=== PATIENT | male | born 1965 | race Native Hawaiian/Other Pacific Islander ===

== ENCOUNTER 2017-03-17 09:26 | Emergency (ER) | payer BC ==
[~2017-03-17] VITALS: Ht 175.3 cm; Wt 59.0 kg
[2017-03-17 09:30] VITALS: TEMP 97.7
[2017-03-17] MEDS ORDERED: LIPITOR40 MG PO (09:45)
[2017-03-17] MEDS ORDERED: FLONASE AL50 MCG/ACT (09:45)
[2017-03-17] MEDS ORDERED: CLOP75TA2 PO (09:46)
[2017-03-17] MEDS ORDERED: PEPCID20 MG OR (09:47)
[2017-03-17] MEDS ORDERED: SM ASPIRIN ADUL81 MG OR (09:47)
[2017-03-17] MEDS ORDERED: AMOX600S (09:48)
[2017-03-17 10:25] LABS: PLATELET COUNT 172 K/uL (142-355)
[2017-03-17 10:30] LABS: POTASSIUM 3.7 mmol/L (3.6-5.2); SODIUM 136 mmol/L (136-145)
[2017-03-17 11:15] VITALS: BP 108/72
== END 2017-03-17 11:45 | disposition home or self-care (01) ==
LOC: ED 09:26
DX: R42 Dizziness and giddiness (principal)
CPT/HCPCS: 36415; 80053; 81000; 85027; 99283

== ENCOUNTER 2017-05-15 08:10 | Outpatient (CLI) | payer BC ==
[~2017-05-15 08:10] MED LIST: AMOX600S; CLOP75TA2 PO; FLONASE AL50 MCG/ACT; LIPITOR40 MG PO; PEPCID20 MG OR; SM ASPIRIN ADUL81 MG OR
[2017-05-15 09:07] LABS: POTASSIUM 4.1 mmol/L (3.6-5.2); SODIUM 139 mmol/L (136-145)
== END 2017-05-15 19:55 | disposition home or self-care (01) ==
LOC: LABW 08:10
PROVIDERS: Internal Medicine
DX: E83.51 Hypocalcemia (principal)
CPT/HCPCS: 36415; 80053

== ENCOUNTER 2017-06-30 08:08 | Outpatient (CLI) | payer BC | END 2017-06-30 09:10 | disposition home or self-care (01) | LOC: LABW 08:08 | PROVIDERS: Nurse Practitioner Adult Health | DX: I25.10 Atherosclerotic heart disease of native coronary artery without angina pectoris (principal); E78.2 Mixed hyperlipidemia; Z79.899 Other long term (current) drug therapy; Z51.81 Encounter for therapeutic drug level monitoring | CPT/HCPCS: 36415; 80061; 80076 ==

== ENCOUNTER 2017-09-02 07:35 | Outpatient (CLI) | payer BC ==
[2017-09-02 08:40] LABS: POTASSIUM 4.3 mmol/L (3.6-5.2); SODIUM 137 mmol/L (136-145)
== END 2017-09-02 19:01 | disposition home or self-care (01) ==
LOC: LABW 07:35
PROVIDERS: Internal Medicine
DX: R00.2 Palpitations (principal)
CPT/HCPCS: 36415; 80053; 83735; 84443

== ENCOUNTER 2017-11-09 19:07 | Emergency (ER) | payer BC ==
[~2017-11-09] VITALS: Ht 175.3 cm; Wt 58.5 kg
[2017-11-09 19:17] VITALS: TEMP 98.4
[2017-11-09 22:03] VITALS: BP 124/78
== END 2017-11-09 22:04 | disposition home or self-care (01) ==
LOC: ED 19:07
DX: S16.1XXA Strain of muscle, fascia and tendon at neck level, initial encounter (principal); S29.012A Strain of muscle and tendon of back wall of thorax, initial encounter; S39.012A Strain of muscle, fascia and tendon of lower back, initial encounter; S10.93XA Contusion of unspecified part of neck, initial encounter; S20.222A Contusion of left back wall of thorax, initial encounter; S20.221A Contusion of right back wall of thorax, initial encounter; S30.0XXA Contusion of lower back and pelvis, initial encounter; V49.3XXA Car occupant (driver) (passenger) injured in unspecified nontraffic accident, initial encounter
CPT/HCPCS: 96372; 99283; J1885

== ENCOUNTER 2018-01-19 09:19 | Outpatient (CLI) | payer BC ==
[2018-01-19 10:15] LABS: PLATELET COUNT 216 K/uL (142-355)
[2018-01-19 10:23] LABS: POTASSIUM 4.3 mmol/L (3.6-5.2)
== END 2018-01-19 21:48 | disposition home or self-care (01) ==
LOC: LABW 09:19
PROVIDERS: Specialist
DX: I25.10 Atherosclerotic heart disease of native coronary artery without angina pectoris (principal); E78.2 Mixed hyperlipidemia; Z79.899 Other long term (current) drug therapy; Z51.81 Encounter for therapeutic drug level monitoring; Z01.810 Encounter for preprocedural cardiovascular examination
CPT/HCPCS: 36415; 80053; 80061; 82248; 85027

== ENCOUNTER 2018-03-27 07:35 | Outpatient (CLI) | payer BC ==
[2018-03-27 07:50] LABS: PLATELET COUNT 222 K/uL (142-355)
== END 2018-03-27 23:09 | disposition home or self-care (01) ==
LOC: LABW 07:35
PROVIDERS: Specialist
DX: R20.8 Other disturbances of skin sensation (principal); G45.8 Other transient cerebral ischemic attacks and related syndromes
CPT/HCPCS: 36415; 80053; 82607; 84443; 85027; 85651; 86039

== ENCOUNTER 2018-04-28 08:49 | Outpatient (CLI) | payer BC | END 2018-04-28 23:45 | disposition home or self-care (01) | LOC: MRI 08:49 | DX: H81.49 Vertigo of central origin, unspecified ear (principal); G45.9 Transient cerebral ischemic attack, unspecified; R20.9 Unspecified disturbances of skin sensation ==

== ENCOUNTER 2018-05-25 09:32 | Outpatient (CLI) | payer BC | END 2018-05-25 21:12 | disposition home or self-care (01) | LOC: RAD 09:32 | DX: M25.522 Pain in left elbow (principal); M25.562 Pain in left knee; M54.42 Lumbago with sciatica, left side; M25.521 Pain in right elbow; M25.561 Pain in right knee ==

== ENCOUNTER 2018-07-20 08:26 | Outpatient (CLI) | payer BC | END 2018-07-20 19:26 | disposition home or self-care (01) | LOC: LABW 08:26 | PROVIDERS: Nurse Practitioner Adult Health | DX: I25.10 Atherosclerotic heart disease of native coronary artery without angina pectoris (principal); E78.2 Mixed hyperlipidemia; Z79.899 Other long term (current) drug therapy | CPT/HCPCS: 36415; 80061; 80076 ==

== ENCOUNTER 2018-11-20 18:39 | Emergency (ER) | payer OTHER ==
[~2018-11-20] VITALS: Ht 175.3 cm; Wt 58.1 kg
[2018-11-20 18:45] VITALS: TEMP 98.9
[2018-11-20 21:14] VITALS: BP 143/75
== END 2018-11-20 21:16 | disposition home or self-care (01) ==
LOC: ED 18:39
DX: S80.12XA Contusion of left lower leg, initial encounter (principal); W22.8XXA Striking against or struck by other objects, initial encounter
CPT/HCPCS: 99281

== ENCOUNTER 2019-01-12 11:43 | Outpatient (CLI) | payer OTHER ==
[2019-01-12] MEDS ORDERED: MECLIZINE25 MG PO (12:54)
[2019-01-12] MEDS ORDERED: GRALISE300 MG PO (12:54)
[2019-01-12] MEDS ORDERED: FLUOXETINE20 MG PO (12:55)
[2019-01-12] MEDS ORDERED: XANAX XR0.5 MG PO (12:55)
[2019-01-12] MEDS ORDERED: PROTONIX20 MG PO (12:56)
[2019-01-12] MEDS ORDERED: MELATONIN3 M1 PO (12:56)
== END 2019-01-12 11:53 | disposition short-term general hospital (02) ==
LOC: AMB 11:43
DX: R07.81 Pleurodynia (principal); R42 Dizziness and giddiness; R11.0 Nausea; R55 Syncope and collapse; R06.02 Shortness of breath
CPT/HCPCS: A0425; A0427

== ENCOUNTER 2019-01-12 11:56 | Emergency (ER) | payer OTHER ==
[~2019-01-12] VITALS: Ht 175.3 cm; Wt 59.0 kg
[2019-01-12 11:56] VITALS: TEMP 98.1
[2019-01-12] MEDS ORDERED: MECLIZINE25 MG PO (12:54)
[2019-01-12] MEDS ORDERED: GRALISE300 MG PO (12:54)
[2019-01-12] MEDS ORDERED: XANAX XR0.5 MG PO (12:55)
[2019-01-12] MEDS ORDERED: FLUOXETINE20 MG PO (12:55)
[2019-01-12] MEDS ORDERED: MELATONIN3 M1 PO (12:56)
[2019-01-12] MEDS ORDERED: PROTONIX20 MG PO (12:56)
[2019-01-12 13:07] LABS: PLATELET COUNT 212 K/uL (142-355)
[2019-01-12 13:08] LABS: POTASSIUM 3.9 mmol/L (3.6-5.2); SODIUM 138 mmol/L (136-145)
[2019-01-12 15:38] VITALS: BP 138/69
== END 2019-01-12 15:38 | disposition home or self-care (01) ==
LOC: ED 11:56
PROVIDERS: Family Medicine
DX: R55 Syncope and collapse (principal); S20.211A Contusion of right front wall of thorax, initial encounter; R00.1 Bradycardia, unspecified
CPT/HCPCS: 80053; 81000; 84484; 85027; 93005; 99283

== ENCOUNTER 2019-03-06 17:32 | Emergency (ER) | payer OTHER ==
[~2019-03-06] VITALS: Ht 175.3 cm; Wt 59.0 kg
[~2019-03-06 17:32] MED LIST changes: +FLUOXETINE20 MG PO; +GRALISE300 MG PO; +MECLIZINE25 MG PO; +MELATONIN3 M1 PO; +PROTONIX20 MG PO; +XANAX XR0.5 MG PO
[2019-03-06 18:34] LABS: PLATELET COUNT 172 K/uL (142-355)
[2019-03-06 18:46] LABS: POTASSIUM 4.1 mmol/L (3.6-5.2); SODIUM 137 mmol/L (136-145)
[2019-03-06 22:36] VITALS: BP 107/58; TEMP 98
== END 2019-03-06 22:39 | disposition home or self-care (01) ==
LOC: ED 17:32
PROVIDERS: Emergency Medicine
DX: R07.89 Other chest pain (principal); T67.5XXA Heat exhaustion, unspecified, initial encounter; X30.XXXA Exposure to excessive natural heat, initial encounter
CPT/HCPCS: 80053; 82550; 82553; 84484; 85027; 93005; 96360; 99284

== ENCOUNTER 2019-09-06 10:31 | Outpatient (CLI) | payer OTHER | END 2019-09-06 19:25 | disposition home or self-care (01) | LOC: RAD 10:31 | DX: R06.09 Other forms of dyspnea (principal) ==

== ENCOUNTER 2019-10-13 21:23 | Emergency (ER) | payer OTHER ==
[~2019-10-13] VITALS: Ht 175.3 cm; Wt 59.0 kg
[2019-10-13 22:36] LABS: PLATELET COUNT 210 K/uL (142-355)
[2019-10-13 22:41] LABS: POTASSIUM 3.8 mmol/L (3.6-5.2)
[2019-10-13 23:47] VITALS: BP 130/79; TEMP 98.1
== END 2019-10-13 23:47 | disposition home or self-care (01) ==
LOC: ED 21:23
PROVIDERS: Emergency Medicine
DX: J40 Bronchitis, not specified as acute or chronic (principal); F17.210 Nicotine dependence, cigarettes, uncomplicated
CPT/HCPCS: 36415; 80053; 82550; 82553; 84484; 85027; 87502; 87651; 93005; 99283

== ENCOUNTER 2021-12-13 10:27 | Outpatient (CLI) | payer OTHER | END 2021-12-13 19:19 | disposition home or self-care (01) | LOC: US 10:27 | PROVIDERS: ATTEND Registered Nurse | DX: R41.0 Disorientation, unspecified (principal) ==